=== PATIENT | female | born 1950 | race Caucasian/White ===

== ENCOUNTER 2018-08-12 21:36 | Emergency (ER) | payer OTHER ==
[~2018-08-12] VITALS: Ht 157.5 cm; Wt 61.2 kg
[2018-08-12] MEDS ORDERED: ATENOLOL50 MG (22:18)
[2018-08-12] MEDS ORDERED: METFORMIN HCL500 MG (22:18)
[2018-08-13] MEDS ORDERED: PYRIDIUM DS200 MG PO (03:53)
[2018-08-13] MEDS ORDERED: CEFUROXIME500 MG PO (03:53)
== END 2018-08-13 04:25 ==
LOC: ER 21:36
DX: N39.0 Urinary tract infection, site not specified (principal)